=== PATIENT | female | born 1980 | race Caucasian/White ===

== ENCOUNTER 2020-01-16 19:56 | Emergency (ER) | payer BC ==
[2020-01-16 20:12] VITALS: BP 136/82
--- NOTE | 2020-01-16 20:30 | UC ---
Throat Pain/Nasal Jose F HPI - HPI Summary HPI Summary: C/O sore throat x 2 days with swollen lymph nodes. Dr. Wilkinson said "lymphoma" - History of Current Complaint Chief Complaint: UCRespiratory Stated Complaint: SWOLLEN LYMPHNODES Time Seen by Provider: 01/16/20 20:12 Hx Obtained From: Patient Hx Last Menstrual Period: couple months ago; on bcp ?: No Onset/Duration: Sudden Onset, Lasting Days - 2, Still Present Severity: Severe Pain Intensity: 8 Cough: None Associated Signs & Symptoms: Positive: Dysphagia - Allergies/Home Medications Allergies/Adverse Reactions: Allergies Allergy/AdvReac Type Severity Reaction Status Date / Time No Known Allergies Allergy Verified 01/16/20 20:06 Home Medications: Home Medications HYDROcodone/ACETAMIN 5-325 MG* [[place] 5-325 TAB*] 1 tab BID PRN 01/16/20 [ History Confirmed 01/16/20] Mometasone Furoate 1 applic DAILY 01/16/20 [History Confirmed 01/16/20] Norethindrone 1 tab DAILY 01/16/20 [History Confirmed 01/16/20] Triamcinolone 0.025% CM(NF) [Kenalog Cream 0.025%*] 1 applic DAILY 01/16/20 [ History Confirmed 01/16/20] PMH/Surg Hx/FS Hx/Imm Hx Previously Healthy: Yes - Surgical History Surgical History: Yes Surgery Procedure, Year, and Place: [place] [facility] - Family History Known Family History: Positive: Cardiac Disease, Hypertension, Diabetes - Social History Occupation: Employed Full-time Lives: With Family Alcohol Use: Weekly Substance Use Type: None Smoking Status (MU): Never Smoked Tobacco Review of Systems All Other Systems Reviewed And Are Negative: Yes ENT: Positive: Sore Throat, Other - enlarged neck lymph nodes Is Patient Immunocompromised?: No Physical Exam Triage Information Reviewed: Yes Appearance: Well-Appearing, Well-Nourished, Pain Distress - mild Vital Signs: Initial Vital Signs Temp 98 F 01/16/20 20:08 Pulse 89 01/16/20 20:08 Resp 16 01/16/20 20:08 BP 136/82 01/16/20 20:08 Pulse Ox 100 01/16/20 20:08 Vital Signs Reviewed: Yes Eyes: Positive: Conjunctiva Clear ENT: Positive: Pharynx normal, TMs normal Neck: Positive: Tenderness @ - anterior cervical submandibular lymph nodes., Enlarged Nodes @ - Anterior cervical nodes. Respiratory Exam: Normal Cardiovascular Exam: Normal Musculoskeletal Exam: Normal Neurological Exam: Normal Psychological Exam: Normal Skin Exam: Normal Throat Pain/Nasal Course/Dx - Differential Dx/Diagnosis Differential Diagnosis/HQI/PQRI: Peritonsillar Abscess, Pharyngitis, Tonsillitis , URI Provider Diagnosis: Pharyngitis, Enlarged lymph node in neck Discharge ED - Sign-Out/Discharge Documenting (check all that apply): Patient Departure All imaging exams completed and their final reports reviewed: No Studies - Discharge Plan Condition: Stable Disposition: HOME Patient Education Materials: Pharyngitis (ED), Lymphadenopathy (ED) Referrals: Raudel GOMEZ,Margo [employer]CH[employer] [Primary Care Provider] - Additional Instructions: tender nodes very unlikely to be lymphoma. Most likely viral . Ok to watch. Follow up if nodes are persistent past 4 weeks. - Billing Disposition and Condition Condition: STABLE Disposition: Home
== END 2020-01-16 20:35 | disposition home or self-care (01) ==
LOC: UCCORT 19:56
DX: J02.9 Acute pharyngitis, unspecified (principal); R59.0 Localized enlarged lymph nodes
CPT/HCPCS: 87651; 99211; G0463